=== PATIENT | female | born 1995 | race Caucasian/White ===

== ENCOUNTER 2022-03-30 07:40 | Emergency (ER) | payer OTHER, SELFPAY ==
[2022-03-30 07:46] VITALS: BP 134/83; PULSE 97; RESP 20; TEMP 36.2; O2SAT 99; BMI 24.8
[2022-03-30 08:57] LABS: Basophils Absolute Auto 0.03 K/uL (0.00-0.30); Basophils Percent Auto 0.4 % (0.0-3.0); Eosinophils Absolute Auto 0.09 K/uL (0.00-0.50); Eosinophils Percent Auto 1.1 % (0.0-7.0); Hematocrit 42.9 % (33.0-51.0); Hemoglobin* 14.5 gm/dL (12.0-16.0); Immature Granulocytes Abs Auto 0.01 K/uL (0.00-0.30); Lymphocytes Percent Auto 14.6 % (20-44); Mean Corpuscular HGB Conc 34 gm/dL (32-36); Mean Corpuscular Hemoglobin 29 pg (26-34); Mean Corpuscular Volume 86 fL (80-100); Neutrophils Percent Auto 79.8 % (42.0-72.0); Platelet Count* 268 K/uL (140-440); Red Blood Count 5.02 m/uL (4.00-5.20); White Blood Count* 8.34 K/uL (4.50-11.00)
[2022-03-30 09:04] LABS: Slide Review Reflex No
[2022-03-30 09:13] LABS: Chloride* 107 mmol/L (96-114); HCG Qualitative* Negative (Negative); Sodium* 137 mmol/L (135-149)
[2022-03-30 09:15] LABS: Creatinine* 0.6 mg/dL (0.5-1.5); Est. Creatinine Clearance* 115.47; Estimated Glomerular Filt Rate 125 ml/min
[2022-03-30 09:16] LABS: Blood Urea Nitrogen* 12 mg/dL (5-24); Calcium* 9.1 mg/dL (8.4-10.6); Carbon Dioxide* 17 mmol/L (20-32); Glucose* 78 mg/dL (60-115)
[2022-03-30 09:20] LABS: Acetaminophen* < 10.0 ug/mL (10.0-30.0); Ethanol* < 0.01 % (0.01-0.03); Salicylate* < 1.0 mg/dL (1.0-10)
--- NOTE | 2022-03-30 09:25 | ED_ITS ---
HPI - Anxiety General Date Seen: 03/30/22 Chief Complaint: Anxiety Stated Complaint: Unable eat or keep fluids down Time Seen by Provider: 03/30/22 07:51 Source: patient Mode of arrival: ambulatory Limitations: no limitations History of Present Illness HPI narrative: Patient is a very nice 26-year-old female who presents here with a feeling of her heart racing, tingling in her hands, and really inability to cope. This is been going on for the last few days possibly made worse yesterday when she found out she was . She is a . Have some problems with anxiety with her last is also. She saw her psychiatrist yesterday for the 1st time and was placed on Prozac of which she has not started taking yet. She denies any suicidal or homicidal ideation and admits that she does know if this is the right place for her. She did do counseling when she was younger, for anxiety, but has not done any recent. Denies use of alcohol, she did smoke marijuana a month ago, but does not use it on a regular basis. Denies taking any other medications, even [id number] medications. No history of previous psychiatric admissions, or suicidal attempts. 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 Reports that her significant other is very supportive Related Data Previous Rx's Medication Instructions Recorded hydroxyzine HCl 25 mg tablet 25 mg PO TID #15 tab 03/30/22 Allergies Allergy/AdvReac Type Severity Reaction Status Date / Time lorazepam [From Ativan] AdvReac Intermediate Verified 03/30/22 07:51 amoxicillin AdvReac Mild Verified 03/30/22 07:51 Review of Systems Status of ROS: Reports: 10 or more systems reviewed and unremarkable except as noted in History and below [facility] Medical History No significant past medical history Surgical History No significant past surgical history Social History Smoking Status: Former smoker How often do you have a drink containing alcohol: monthly or less AUDIT-C Alcohol total score: 1 Non-prescribed substance use: marijuana (any form) Exam Const: Vital Signs, click to edit/add: Vital Signs - 24 hr 03/30/22 07:46 Temperature 97.1 F L Pulse Rate [Pulse Oximeter] 97 Respiratory Rate 20 Blood Pressure [Ri ght Upper Arm] 134/83 Pulse Oximetry 99 Documenting provider has reviewed patient's vital signs: yes Common normals: no apparent distress, average body habitus, oriented x3, no limitations, healthy appearing, alert and well nourished General appearance: well kempt HENMT: Common normals: normocephalic, head/scalp atraumatic, hearing grossly normal bilaterally, external ears normal, EAC's normal, TM's normal bilaterally, external nose normal, nasal mucous membranes and turbinates normal, moist oral mucous membranes, oropharynx normal, dentition normal and gingiva normal Head and scalp: normocephalic and atraumatic Nose: external nose normal and nasal mucous membranes and turbinates normal External ear: external ears normal External auditory canal: EAC's normal Tympanic membrane: TM's normal bilaterally Eye: Common normals: PERRL, EOMs intact bilaterally, conjunctivae normal, no scleral icterus, no papilledema, normal visual kathleen by confrontation and fundi normal bilaterally Conjunctiva: conjunctiva(e) normal Pupil: PERRL Direct Ophthalmoscopy: no papilledema and fundi normal bilaterally Neck & C-Spine: Common normals: full ROM, no lymphadenopathy, supple, no meningeal signs, thyroid normal and no carotid bruits Thyroid: thyroid normal Lymph: Lymphatic: no lymphadenopathy noted Resp: Common normals: normal respiratory effort, no retractions, no use of accessory muscles, clear to auscultation bilaterally and percussion normal Auscultation: clear to auscultation bilaterally Percussion: percussion normal GI: Common normals: Normal to inspection, nondistended, normoactive bowel sounds present, soft to palpation, non-tender, no hepatosplenomegaly, no masses and no bruits Palpation: soft and no hepatosplenomegaly : Common normals: no CVA tenderness Bladder/kidney exam: no CVA tenderness Back & Pelvis: Common normals: no CVA tenderness, thoracic and lumbar spine normal to inspection, no thoracic nor lumbar tenderness, thoraco-lumbar ROM normal and straight leg raise negative bilaterally Extremity: Common normals: normal to inspection, full ROM, normal capillary refill, no joint enlargement, no clubbing, cyanosis or edema, no calf tenderness and no pedal edema Neuro: Common normals: oriented x3 Sensorium/orientation: alert Meningeal signs: no meningeal signs Psych: Common normals: mental status grossly normal, thought process normal, cooperative, affect normal, speech normal, activity/motor behavior normal, denies hallucinations, denies homicidal ideation and denies suicidal ideation Appearance: grossly normal and well kempt Attitude: engaged Activity/motor behavior: appropriate eye contact Speech: normal speech Mood and affect: anxious Thought process: normal thought process Thought content: normal thought content Attention/concentration: attention grossly intact Memory/cognition: memory grossly intact Insight: insight good Judgement: judgment good Skin: Common normals: no rashes or lesions noted General skin exam: no rashes or lesions noted Course Course Hospital Course: Patient was seen and assessed, Differential diagnosis includes but is not limited life-threatening diagnosis is of severe depression with suicidal plan, chemical intoxication with suicidal ideation and risk of self-harm, schizoaffective disorder with risk of self-harm, bipolar disorder with severe depressive phase and risk of self-harm, personality disorder with risk of self-harm, depression due to hyperthyroidism, metabolic derangement, or INTELLIGENT SYSTEMS ENGINEER abnormality Laboratory work was reassuring, her test was negative, there was evidence of marijuana on her urine drug screen but we already knew that. The remainder of her laboratory work was otherwise normal. I did have the mental health evaluation done, they also found her safe to go home, she agreed to sinus safety contract, we will set her up with psychologist, for counseling, she will return here if signs symptoms of worsening which we have gone over, I did give her a small supply of Atarax, (hydroxyzine) this will be used for her acute anxiety, we went over the signs and symptoms associated with use of this medication, and interactions. Vital Signs Vital signs: Initial Vital Signs Temperature 97.1 F L 03/30/22 07:46 Temperature Source Temporal Artery Scan 03/30/22 07:46 Pulse Rate 97 03/30/22 07:46 Respiratory Rate 20 03/30/22 07:46 Blood Pressure 134/83 03/30/22 07:46 Blood Pressure Mean 100 03/30/22 07:46 Blood Pressure Position Supine 03/30/22 07:46 Pulse Oximetry 99 03/30/22 07:46 Oxygen Delivery Method 03/30/22 07:46 Vital Signs Temperature 97.1 F L 03/30/22 07:46 Pulse Rate 97 03/30/22 07:46 Respiratory Rate 20 03/30/22 07:46 Blood Pressure 134/83 03/30/22 07:46 Pulse Oximetry 99 03/30/22 07:46 Temperature 97.1 F L 03/30/22 07:46 Pulse Rate 97 03/30/22 07:46 Respiratory Rate 20 03/30/22 07:46 Blood Pressure 134/83 03/30/22 07:46 Pulse Oximetry 99 03/30/22 07:46 MDM - Anxiety MDM Narrative Medical decision making narrative: Patient is seen and assessed her vital signs are normal. She is alert and oriented. I discussed with her getting an evaluation, I believe this is more likely anxiety, likely worsened by her finding out she is . She does have a baseline issue with this. Differential diagnosis of the patient's acute psychosis is mental illness in the form of schizophrenia, bipolar disorder, metabolic derangement such as hyper/hypoglycemia or hypo/hyper natremia, INTELLIGENT SYSTEMS ENGINEER disorder such as infection, drug use either listed her prescription, dementia, thyrotoxicosis, hepatic failure as well as other etiologies. Several items in the differential diagnosis have the potential to be life-threatening such as liver failure, hypo and hypernatremia. We will go ahead and get some labs along with a mental health evaluation. Differential Diagnosis Differential diagnosis: Likely hyperventilation, panic disorder and acute anxiety Medical Records Attestation: I reviewed the patient's medical records. Lab Data Attestation: I reviewed the patient's lab results. Labs: Lab Results 03/30/22 03/30/22 03/30/22 Range/Units 08:48 08:48 08:48 WBC 8.34 (4.50-11.00) K/uL RBC 5.02 (4.00-5.20) m/uL Hgb 14.5 (12.0-16.0) gm/dL Hct 42.9 (33.0-51.0) % MCV 86 (80-100) fL MCH 29 (26-34) pg MCHC 34 (32-36) gm/dL RDW Coeff of Christian 12.0 (11.5-15.5) % Plt Count 268 (140-440) K/uL Neut % (Auto) 79.8 H (42.0-72.0) % Lymph % (Auto) 14.6 L (20-44) % [place] % (Auto) 4.0 (0.0-11.0) % Eos % (Auto) 1.1 (0.0-7.0) % Baso % (Auto) 0.4 (0.0-3.0) % Neut # (Auto) 6.70 (1.7-7.0) K/uL Lymph # (Auto) 1.20 (0.90-2.90) K/uL [place] # (Auto) 0.30 (0.00-0.90) K/UL Eos # (Auto) 0.09 (0.00-0.50) K/uL Baso # (Auto) 0.03 (0.00-0.30) K/uL Abs Immat Gran (auto) 0.01 (0.00-0.30) K/uL Sodium 137 (135-149) mmol/L Potassium 4.0 (3.6-5.1) mmol/L Chloride 107 (96-114) mmol/L Carbon Dioxide 17 L (20-32) mmol/L BUN 12 (5-24) mg/dL Creatinine 0.6 (0.5-1.5) mg/dL Estimated Creat Clear 115.47 Estimated GFR 125 ml/min Glucose 78 (60-115) mg/dL Calcium 9.1 (8.4-10.6) mg/dL HCG, Qual Negative (Negative) Salicylates < 1.0 L (1.0-10) mg/dL Urine Opiates Screen (Negative) Ur Oxycodone Screen (Negative) Urine Methadone Screen (Negative) Ur Propoxyphene Screen (Negative) Acetaminophen < 10.0 L (10.0-30.0) ug/mL Ur Barbiturates Screen (Negative) U Tricyclic Antidepress (Negative) Ur Phencyclidine Scrn (Negative) Ur Amphetamines Screen (Negative) U Methamphetamines Scrn (Negative) U Benzodiazepines Scrn (Negative) Urine Cocaine Screen (Negative) U Marijuana (THC) Screen (Negative) Ur Drug Screen Comment Ethyl Alcohol < 0.01 L (0.01-0.03) % 07/29/22 Range/Units 09:10 WBC (4.50-11.00) K/uL RBC (4.00-5.20) m/uL Hgb (12.0-16.0) gm/dL Hct (33.0-51.0) % MCV (80-100) fL MCH (26-34) pg MCHC (32-36) gm/dL RDW Coeff of Christian (11.5-15.5) % Plt Count (140-440) K/uL Neut % (Auto) (42.0-72.0) % Lymph % (Auto) (20-44) % [place] % (Auto) (0.0-11.0) % Eos % (Auto) (0.0-7.0) % Baso % (Auto) (0.0-3.0) % Neut # (Auto) (1.7-7.0) K/uL Lymph # (Auto) (0.90-2.90) K/uL [place] # (Auto) (0.00-0.90) K/UL Eos # (Auto) (0.00-0.50) K/uL Baso # (Auto) (0.00-0.30) K/uL Abs Immat Gran (auto) (0.00-0.30) K/uL Sodium (135-149) mmol/L Potassium (3.6-5.1) mmol/L Chloride (96-114) mmol/L Carbon Dioxide (20-32) mmol/L BUN (5-24) mg/dL Creatinine (0.5-1.5) mg/dL Estimated Creat Clear Estimated GFR ml/min Glucose (60-115) mg/dL Calcium (8.4-10.6) mg/dL HCG, Qual (Negative) Salicylates (1.0-10) mg/dL Urine Opiates Screen Negative (Negative) Ur Oxycodone Screen Negative (Negative) Urine Methadone Screen Negative (Negative) Ur Propoxyphene Screen Negative (Negative) Acetaminophen (10.0-30.0) ug/mL Ur Barbiturates Screen Negative (Negative) U Tricyclic Antidepress Negative (Negative) Ur Phencyclidine Scrn Negative (Negative) Ur Amphetamines Screen Negative (Negative) U Methamphetamines Scrn Negative (Negative) U Benzodiazepines Scrn Negative (Negative) Urine Cocaine Screen Negative (Negative) U Marijuana (THC) Screen POSITIVE A* (Negative) Ur Drug Screen Comment See Note Ethyl Alcohol (0.01-0.03) % Discharge Plan Discharge Clinical Impression: Acute anxiety Patient Disposition: Home, Self-Care Condition: Improved Instructions: Anxiety (ED) Additional Instructions: Home, rest, follow-up with psychologist as directed, please signed a safety plan, return if worsening signs and symptoms, the medication I prescribed for you is for the anxiety, but can make you tired. Do not combine with alcohol, note for work given today. Please recheck her test in 1 week if you do not get her period. Prescriptions: New hydroxyzine HCl 25 mg tablet 25 mg PO TID Qty: 15 0RF Follow Up/Referrals: Provider,Not a Local [Primary Care Provider] - Stand Alone Forms: [employer] Info Instructions
[2022-03-30 09:26] LABS: Amphetamine Screen Urine Negative (Negative); Barbiturate Screen Urine Negative (Negative); Benzodiazepines Screen Urine Negative (Negative); Cocaine Screen Urine Negative (Negative); Methadone Screen Urine Negative (Negative); Methamphetamines Screen Urine Negative (Negative); Opiate Screen Urine Negative (Negative); Oxycodone Screen Urine Negative (Negative); Phencyclidine Screen Urine Negative (Negative); Tricyclic Antidepressant Urine Negative (Negative)
--- NOTE | 2022-03-30 09:26 | ED.NURSE ---
dec assessment initiated. pt looking at breakfast menu
[2022-03-30 09:31] LABS: Cannabinoid Screen Urine POSITIVE (Negative)
--- NOTE | 2022-03-30 09:39 | ED.NURSE ---
pt having DEC assessment
== END 2022-03-30 11:10 | disposition home or self-care (01) ==
PROVIDERS: Emergency Provider Family Medicine
DX: F41.9 Anxiety disorder, unspecified (principal)
CPT/HCPCS: 36415; 80048; 80143; 80179; 80306; 82077; 84703; 85025; 99283; 99284

== ENCOUNTER 2022-04-03 17:23 | Emergency (ER) | payer OTHER, SELFPAY ==
[2022-04-03] VITALS (8 sets, daily range): BP systolic 116–135; BP diastolic 75–103; PULSE 94–119; RESP 24; O2SAT 97–99; BMI 24.8
[2022-04-03 19:42] LABS: Chloride* 109 mmol/L (96-114); Potassium* 3.2 mmol/L (3.6-5.1); Sodium* 138 mmol/L (135-149)
[2022-04-03 19:45] LABS: Blood Urea Nitrogen* 10 mg/dL (5-24); Carbon Dioxide* 17 mmol/L (20-32); Creatinine* 0.6 mg/dL (0.5-1.5); Est. Creatinine Clearance* 115.47; Estimated Glomerular Filt Rate 125 ml/min
[2022-04-03 19:46] LABS: Calcium* 9.3 mg/dL (8.4-10.6); Glucose* 85 mg/dL (60-115)
[2022-04-03 19:59] LABS: Troponin I* < 0.01 ng/mL (0.01-0.04)
[2022-04-03 20:02] LABS: Basophils Absolute Auto 0.03 K/uL (0.00-0.30); Basophils Percent Auto 0.3 % (0.0-3.0); Eosinophils Absolute Auto 0.09 K/uL (0.00-0.50); Hematocrit 40.7 % (33.0-51.0); Hemoglobin* 14.1 gm/dL (12.0-16.0); Immature Granulocytes Abs Auto 0.01 K/uL (0.00-0.30); Lymphocytes Absolute Auto 2.21 K/uL (0.90-2.90); Lymphocytes Percent Auto 24.2 % (20-44); Mean Corpuscular HGB Conc 35 gm/dL (32-36); Mean Corpuscular Hemoglobin 29 pg (26-34); Mean Corpuscular Volume 82 fL (80-100); Monocytes Percent Auto 6.5 % (0.0-11.0); Neutrophils Absolute Auto 6.21 K/uL (1.7-7.0); Neutrophils Percent Auto 67.9 % (42.0-72.0); Platelet Count* 330 K/uL (140-440); RDW Coefficient of Variation % 11.8 % (11.5-15.5); Red Blood Count 4.95 m/uL (4.00-5.20); Slide Review Reflex No; White Blood Count* 9.14 K/uL (4.50-11.00)
[2022-04-03 20:04] LABS: D Dimer Quantitative* < 0.27 ug/ml (0.00-0.50)
[2022-04-03 20:17] LABS: PCR FLU A Negative PCR FLU A (Negative); PCR FLU B Negative PCR FLU B (Negative)
--- NOTE | 2022-04-03 20:42 | ED.GENADULT ---
HPI - General Adult General Chief complaint: Neuro Symptoms/Altered Deficit Stated complaint: joints locking up, facial numbness Time Seen by Provider: 04/03/22 18:51 History of Present Illness HPI narrative: Leidy is a 26yo female patient at approximately 5-6wks EGA based on LMP with complaints of anxiety, shortness of breath, and chest discomfort. She reports her symptoms have been worsening over the past 2 days. She called her psychiatrist she has recently started a new medication, Prozac, and was advised to stop the medication and follow-up with the psychiatrist later in the week. The patient states that she has had some nausea without vomiting. She denies URI symptoms. She denies cough. 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 She is tested twice weekly. She has no significant past medical history besides anxiety and depression. See nursing notes for additional details. Related Data Previous Rx's Medication Instructions Recorded hydroxyzine HCl 25 mg tablet 25 mg PO TID Anxiety #15 tabs 03/30/22 Allergies Allergy/AdvReac Type Severity Reaction Status Date / Time lorazepam [From Ativan] AdvReac Intermediate Verified 03/30/22 07:51 amoxicillin AdvReac Mild Verified 03/30/22 07:51 Review of Systems Const: Reports: fatigue and malaise; Denies: fever or chills ENMT: Denies: throat pain, throat swelling, difficulty swallowing, nasal discharge or nasal congestion Cardio: Reports: lightheadedness and shortness of breath with exertion; Denies: chest pain (reports chest 'tightness'), palpitations, swelling of feet/ankles or shortness of breath when lying down Resp: Reports: shortness of breath; Denies: cough or wheezing GI: Denies: abdominal pain, nausea, vomiting, diarrhea, constipation or difficulty swallowing Integ/Breast: Denies: rash Neuro: Denies: headache Endo: Reports: fatigue Allergy/Immuno: Denies: throat swelling or wheezing PFSH PFS Medical History No significant past medical history Surgical History No significant past surgical history Social History (Reviewed 04/03/22 @ 20:55 by KARAN Vargas Smoking Status: Former smoker Do you use any of these nicotine containing products: None How often do you have a drink containing alcohol: monthly or less AUDIT-C Alcohol total score: 1 Non-prescribed substance use: marijuana (any form) Exam Const: Vital Signs, click to edit/add: Vital Signs - 24 hr 04/03/22 17:38 Pulse Rate [Pulse Oximeter] 115 H Respiratory Rate 24 Blood Pressure [Ri ght Upper Arm] 129/77 Pulse Oximetry 98 Oxygen Delivery Me thod Room Air Documenting provider has reviewed patient's vital signs: yes Common normals: no apparent distress and alert General appearance: cooperative, comfortable and well developed Orientation/consciousness: Yes awake, Yes oriented to person, Yes oriented to place and Yes oriented to time Resp: Common normals: normal respiratory effort, no use of accessory muscles and clear to auscultation bilaterally Effort & inspection: able to speak in complete sentences Auscultation: clear to auscultation bilaterally Cardio: Common normals: regular rate, regular rhythm, S1 normal heart sound and S2 normal heart sound Rate: regular rate Rhythm: regular rhythm Heart sounds: S1 normal and S2 normal GI: Common normals: soft to palpation Palpation: soft Extremity: Common normals: normal to inspection and full ROM Neuro: Sensorium/orientation: awake, alert, oriented to person, oriented to place and oriented to time Motor exam: strength 5/5 throughout and no pronator drift Psych: Common normals: mental status grossly normal, thought process normal, cooperative and affect normal Thought process: normal thought process Skin: Common normals: no rashes or lesions noted General skin exam: no rashes or lesions noted Course Course Hospital Course: Andria presented to the emergency department with complaints of anxiety, shortness of breath, and chest pressure. Laboratory studies and EKG were performed with findings as noted. Ivory previously discussed the adverse effects of medication she had recently started with her psychiatrist. Her psychiatrist encourage her to stop the medication follow-up later in the week. We discussed the risks and benefits of medication use, especially during early . Patient's results were discussed with her and her significant other, her questions were answered, and she verbalized understanding. She is reassured time of discharge. She is encouraged to follow-up if she has any acute concerns or complaints. Vital Signs Vital signs: Initial Vital Signs Temperature Source Temporal Artery Scan 04/03/22 17:38 Pulse Rate 115 H 04/03/22 17:38 Pulse Rhythm 04/03/22 17:38 Respiratory Rate 24 04/03/22 17:38 Blood Pressure 129/77 04/03/22 17:38 Blood Pressure Mean 94 04/03/22 17:38 Pulse Oximetry 98 04/03/22 17:38 Oxygen Delivery Method 04/03/22 17:38 Vital Signs Pulse Rate 115 H 04/03/22 17:38 Respiratory Rate 24 04/03/22 17:38 Blood Pressure 129/77 04/03/22 17:38 Pulse Oximetry 98 04/03/22 17:38 Oxygen Delivery Method 04/03/22 17:38 Pulse Rate 115 H 04/03/22 17:38 Respiratory Rate 24 04/03/22 17:38 Blood Pressure 129/77 04/03/22 17:38 Pulse Oximetry 98 04/03/22 17:38 Oxygen Delivery Method 04/03/22 17:38 Medical Decision Making Lab Data Labs: Lab Results 04/03/22 04/03/22 04/03/22 Range/Units 19:15 19:15 19:15 WBC 9.14 (4.50-11.00) K/uL RBC 4.95 (4.00-5.20) m/uL Hgb 14.1 (12.0-16.0) gm/dL Hct 40.7 (33.0-51.0) % MCV 82 (80-100) fL MCH 29 (26-34) pg MCHC 35 (32-36) gm/dL RDW Coeff of Christian 11.8 (11.5-15.5) % Plt Count 330 (140-440) K/uL Neut % (Auto) 67.9 (42.0-72.0) % Lymph % (Auto) 24.2 (20-44) % [place] % (Auto) 6.5 (0.0-11.0) % Eos % (Auto) 1.0 (0.0-7.0) % Baso % (Auto) 0.3 (0.0-3.0) % Neut # (Auto) 6.21 (1.7-7.0) K/uL Lymph # (Auto) 2.21 (0.90-2.90) K/uL [place] # (Auto) 0.60 (0.00-0.90) K/UL Eos # (Auto) 0.09 (0.00-0.50) K/uL Baso # (Auto) 0.03 (0.00-0.30) K/uL Abs Immat Gran (auto) 0.01 (0.00-0.30) K/uL D-Dimer Quant (PE/DVT) < 0.27 (0.00-0.50) ug/ml Sodium 138 (135-149) mmol/L Potassium 3.2 L (3.6-5.1) mmol/L Chloride 109 (96-114) mmol/L Carbon Dioxide 17 L (20-32) mmol/L BUN 10 (5-24) mg/dL Creatinine 0.6 (0.5-1.5) mg/dL Estimated Creat Clear 115.47 Estimated GFR 125 ml/min Glucose 85 (60-115) mg/dL Calcium 9.3 (8.4-10.6) mg/dL Troponin I < 0.01 L (0.01-0.04) ng/mL SARS-CoV-2 (PCR) (Negative) Influenza Type A (PCR) (Negative) Influenza Type B (PCR) (Negative) 04/03/22 Range/Units 19:34 WBC (4.50-11.00) K/uL RBC (4.00-5.20) m/uL Hgb (12.0-16.0) gm/dL Hct (33.0-51.0) % MCV (80-100) fL MCH (26-34) pg MCHC (32-36) gm/dL RDW Coeff of Christian (11.5-15.5) % Plt Count (140-440) K/uL Neut % (Auto) (42.0-72.0) % Lymph % (Auto) (20-44) % [place] % (Auto) (0.0-11.0) % Eos % (Auto) (0.0-7.0) % Baso % (Auto) (0.0-3.0) % Neut # (Auto) (1.7-7.0) K/uL Lymph # (Auto) (0.90-2.90) K/uL [place] # (Auto) (0.00-0.90) K/UL Eos # (Auto) (0.00-0.50) K/uL Baso # (Auto) (0.00-0.30) K/uL Abs Immat Gran (auto) (0.00-0.30) K/uL D-Dimer Quant (PE/DVT) (0.00-0.50) ug/ml Sodium (135-149) mmol/L Potassium (3.6-5.1) mmol/L Chloride (96-114) mmol/L Carbon Dioxide (20-32) mmol/L BUN (5-24) mg/dL Creatinine (0.5-1.5) mg/dL Estimated Creat Clear Estimated GFR ml/min Glucose (60-115) mg/dL Calcium (8.4-10.6) mg/dL Troponin I (0.01-0.04) ng/mL SARS-CoV-2 (PCR) Negative SARS-CoV-2 (Negative) Influenza Type A (PCR) Negative PCR FLU A (Negative) Influenza Type B (PCR) Negative PCR FLU B (Negative) Discharge Plan Discharge Clinical Impression: Encounter for incidental , Acute anxiety, Adverse effect of antidepressant drug Patient Disposition: Home, Self-Care Condition: Stable Instructions: Cognitive Behavioral Therapy (ED) Additional Instructions: Thank you for choosing [facility] for your care today. Consider counseling for definitive therapy and coping mechanisms to add to the emotional toolbox to assist with control of symptoms of anxiety and depression. I recommend calling primary care for follow-up in the next 3-5 days. If new or worsening symptoms develop, if you develop suicidal thoughts, or you have any concerns in the meantime, please call your primary care clinic or return to the ER for re-evaluation. Activity Level: No Restrictions and Activity as Tolerated Discharge Diet: Regular Prescriptions: No Action hydroxyzine HCl 25 mg tablet 25 mg PO TID Qty: 15 0RF Follow Up/Referrals: Provider,Not a Local [Primary Care Provider] - Stand Alone Forms: [employer] Info Instructions
[2022-04-03 21:06] LABS: SARS PCR* Negative SARS-CoV-2 (Negative)
== END 2022-04-03 22:03 | disposition home or self-care (01) ==
PROVIDERS: Emergency Provider Family Medicine
DX: F41.9 Anxiety disorder, unspecified (principal); Z33.1 Pregnant state, incidental; T43.205A Adverse effect of unspecified antidepressants, initial encounter
CPT/HCPCS: 36415; 80048; 84484; 85025; 85379; 87502; 87635; 93005; 99283; 99284

== ENCOUNTER 2022-08-01 17:45 | Emergency (ER) | payer OTHER, SELFPAY ==
[2022-08-01 18:05] VITALS: BP 113/68; PULSE 115; RESP 16; TEMP 36.9; O2SAT 97; BMI 24.8
--- NOTE | 2022-08-01 18:24 | CRLHL7_ITS ---
For Patients: As a result of the Century Cures Act, medical imaging exams and procedure reports are released immediately into your electronic medical record. You may view this report before your referring provider. If you have questions, please contact your health care provider. INDICATION: Post miscarriage. TECHNIQUE: Ultrasound pelvis transvaginal for better assessment or to better visualize the endometrium. Real-time sonographic images with spectral and color Doppler imaging of the ovaries were obtained. COMPARISON: None. FINDINGS: Uterus: 8.2 x 4 x 5 cm. Normal echotexture of the myometrium. No masses. Endometrium: Transvaginal imaging was performed to better evaluate the endometrium. Endometrial thickness measures 13 mm. Thickened heterogeneous endometrial stripe with internal echogenic material and hypervascularity. Ovaries: The right ovary measures 3.7 x 2.3 x 2.3 cm and left ovary measures 3.3 x 1.3 x 1.6 cm. No ovarian or adnexal masses. Normal arterial and venous blood flow in both ovaries. Cul-de-sac: No significant free fluid. IMPRESSION: Heterogeneous hypervascular material in the endometrial canal is concerning for retained products of conception. Dictated by Endy Ghosh MD @ 08/01/2022 7:15:17 PM (Electronically Signed)
--- NOTE | 2022-08-01 18:25 | ED.GENADULT ---
HPI - General Adult General Time Seen by Provider: 18:25 Date Seen: 08/01/22 Chief complaint: Abdominal Pain Stated complaint: Bleeding Ovarian Cyst Time Seen by Provider: 08/01/22 18:16 Source: patient Mode of arrival: ambulatory Limitations: no limitations History of Present Illness HPI narrative: Patient is a very pleasant 18-year-old female who has had 2 children, 3 miscarriages, and who presents about 1 month after having a miscarriage, with persistent bleeding on and off over the month she had an episode of miscarriage, the did not require intervention she had only lied about 4 days, subsequently as she was followed by bleeding mid month of this month for about a week, and then recently was rolling over in bed to Dr. Elise and had a gush of blood and some bleeding again today. She has had some lower abdominal cramping on the left she has had an ruptured ovarian cyst in the past and feels this is similar. She is not on any control. She follows with [facility]. No other specific concerns, no fevers, no chills. On presentation her pulse is slightly elevated 115. She is generally healthy. Related Data Previous Rx's Medication Instructions Recorded hydroxyzine HCl 25 mg tablet 25 mg PO TID Anxiety #15 tabs 03/30/22 desogestrel-e.estradiol 0.15 1 tab PO QDAY #84 tabs 08/02/22 mg-0.02 mg(21)/e.estrad 0.01 mg(5) tablet Allergies Allergy/AdvReac Type Severity Reaction Status Date / Time fluoxetine Allergy Intermediate heart rate Verified 08/02/22 14:24 elevated lorazepam [From Ativan] AdvReac Intermediate Verified 08/02/22 14:24 amoxicillin AdvReac Mild Verified 08/02/22 14:24 Review of Systems Status of ROS: Reports: 6 or more systems reviewed and unremarkable except as noted in History and below [facility] Medical History (Updated 08/02/22 @ 14:27 by Luz Haywood MD) Miscarriage No significant past medical history Retained products of conception Surgical History No significant past surgical history Social History Smoking Status: Former smoker Do you use any of these nicotine containing products: None How often do you have a drink containing alcohol: monthly or less Alcohol type: other Alcohol type details: WHITE CLAWS How many standard drinks containing alcohol do you have on a typical day: 1 or 2 How often do you have six or more drinks on one occasion: Never AUDIT-C Alcohol total score: 1 Non-prescribed substance use: marijuana (any form) Non-prescribed substance use details: DAILY Caffeine: Yes Are you using contraception or practicing any form of control: No Exam Narrative: Exam Narrative: Objective: In general patient is no apparent distress her vital signs show an elevated pulse of 115 otherwise unremarkable, afebrile HEENT unremarkable does not appear pale Abdomen benign soft There is mild tenderness in the left lower pelvic area. Negative extremities no edema, good peripheral perfusion Const: Vital Signs, click to edit/add: Vital Signs - 24 hr 08/01/22 18:05 Temperature 98.5 F Pulse Rate [Right Pulse Oximeter] 115 H Respiratory Rate 16 Blood Pressure [Ri ght Upper Arm] 113/68 Pulse Oximetry 97 Oxygen Delivery Me thod Room Air Course Vital Signs Vital signs: Initial Vital Signs Temperature 98.5 F 08/01/22 18:05 Temperature Source Temporal Artery Scan 08/01/22 18:05 Pulse Rate 115 H 08/01/22 18:05 Respiratory Rate 16 08/01/22 18:05 Blood Pressure 113/68 08/01/22 18:05 Blood Pressure Mean 83 08/01/22 18:05 Blood Pressure Position Sitting 08/01/22 18:05 Pulse Oximetry 97 08/01/22 18:05 Oxygen Delivery Method 08/01/22 18:05 Vital Signs Temperature 98.5 F 08/01/22 18:05 Pulse Rate 115 H 08/01/22 18:05 Respiratory Rate 16 08/01/22 18:05 Blood Pressure 113/68 08/01/22 18:05 Pulse Oximetry 97 08/01/22 18:05 Oxygen Delivery Method 08/01/22 18:05 Temperature 98.5 F 08/01/22 18:05 Pulse Rate 115 H 08/01/22 18:05 Respiratory Rate 16 08/01/22 18:05 Blood Pressure 113/68 08/01/22 18:05 Pulse Oximetry 97 08/01/22 18:05 Oxygen Delivery Method 08/01/22 18:05 Medical Decision Making MDM Narrative Medical decision making narrative: At this point I think be reasonable to get a pelvic ultrasound, to determine there is any intrauterine contents. Will get a quantitative HCG. Blood type. Give IV fluids for her mild tachycardia. Disposition pending findings above. Addendum: The patient appears on ultrasound to have retained products of conception in the endometrial canal. She has passed a couple of large clots, but now seems to have slowed the bleeding. She appears hemodynamically stable and pulses improved. I think we can allow her to go home. I consulted with Dr. Martinez who kindly will see the patient in follow-up and discuss further care such as Cytotec verses endometrial curettage. Patient was agree in agreement with this. And will follow up as such. The patient's blood type is B-positive Lab Data Labs: Lab Results 08/01/22 08/01/22 08/01/22 Range/Units 18:35 18:35 18:35 WBC 7.40 (4.50-11.00) K/uL RBC 4.45 (4.00-5.20) m/uL Hgb 13.0 (12.0-16.0) gm/dL Hct 38.1 (33.0-51.0) % MCV 86 (80-100) fL MCH 29 (26-34) pg MCHC 34 (32-36) gm/dL RDW Coeff of Christian 11.7 (11.5-15.5) % Plt Count 291 (140-440) K/uL Neut % (Auto) 60.5 (42.0-72.0) % Lymph % (Auto) 30.7 (20-44) % [place] % (Auto) 6.5 (0.0-11.0) % Eos % (Auto) 1.8 (0.0-7.0) % Baso % (Auto) 0.5 (0.0-3.0) % Neut # (Auto) 4.48 (1.7-7.0) K/uL Lymph # (Auto) 2.27 (0.90-2.90) K/uL [place] # (Auto) 0.50 (0.00-0.90) K/UL Eos # (Auto) 0.13 (0.00-0.50) K/uL Baso # (Auto) 0.04 (0.00-0.30) K/uL Abs Immat Gran (auto) 0.00 (0.00-0.30) K/uL Imm/Tot Granulo (auto) 0.0 % Sodium 139 (135-149) mmol/L Potassium 3.6 (3.6-5.1) mmol/L Chloride 108 (96-114) mmol/L Carbon Dioxide 21 (20-32) mmol/L BUN 11 (5-24) mg/dL Creatinine 0.5 (0.5-1.5) mg/dL Estimated Creat Clear 138.57 Estimated GFR 131 ml/min Glucose 76 (60-115) mg/dL Calcium 9.3 (8.4-10.6) mg/dL HCG, Quant mIU/mL Blood Type B Positive 08/01/22 Range/Units 18:35 WBC (4.50-11.00) K/uL RBC (4.00-5.20) m/uL Hgb (12.0-16.0) gm/dL Hct (33.0-51.0) % MCV (80-100) fL MCH (26-34) pg MCHC (32-36) gm/dL RDW Coeff of Christian (11.5-15.5) % Plt Count (140-440) K/uL Neut % (Auto) (42.0-72.0) % Lymph % (Auto) (20-44) % [place] % (Auto) (0.0-11.0) % Eos % (Auto) (0.0-7.0) % Baso % (Auto) (0.0-3.0) % Neut # (Auto) (1.7-7.0) K/uL Lymph # (Auto) (0.90-2.90) K/uL [place] # (Auto) (0.00-0.90) K/UL Eos # (Auto) (0.00-0.50) K/uL Baso # (Auto) (0.00-0.30) K/uL Abs Immat Gran (auto) (0.00-0.30) K/uL Imm/Tot Granulo (auto) % Sodium (135-149) mmol/L Potassium (3.6-5.1) mmol/L Chloride (96-114) mmol/L Carbon Dioxide (20-32) mmol/L BUN (5-24) mg/dL Creatinine (0.5-1.5) mg/dL Estimated Creat Clear Estimated GFR ml/min Glucose (60-115) mg/dL Calcium (8.4-10.6) mg/dL HCG, Quant < 2.39 mIU/mL Blood Type Discharge Plan Discharge Clinical Impression: DUB (dysfunctional uterine bleeding) Patient Disposition: Home, Self-Care Condition: Stable Additional Instructions: Light activity, [facility] in the next day or 2. Dr. Damon was consulted and would be happy to see the patient in follow-up. I will have ER staff contact the clinic in the morning and see if we can get the patient an appointment. If she has increased bleeding, dizziness, increased pain that is she is uncomfortable with an can not tolerate, she should return back to the ER. Activity Level: Light activity Discharge Diet: Regular Prescriptions: No Action desog-e.estradiol/e.estradiol 0.15-0.02 mgx21 /0.01 mg x 5 tablet 1 tab PO QDAY Qty: 84 3RF hydroxyzine HCl 25 mg tablet 25 mg PO TID Qty: 15 0RF Follow Up/Referrals: Provider,Not a Local [Primary Care Provider] - Stand Alone Forms: [employer] Info Instructions
[2022-08-01 18:46] LABS: Basophils Absolute Auto 0.04 K/uL (0.00-0.30); Basophils Percent Auto 0.5 % (0.0-3.0); Eosinophils Absolute Auto 0.13 K/uL (0.00-0.50); Eosinophils Percent Auto 1.8 % (0.0-7.0); Hematocrit 38.1 % (33.0-51.0); Lymphocytes Absolute Auto 2.27 K/uL (0.90-2.90); Lymphocytes Percent Auto 30.7 % (20-44); Mean Corpuscular HGB Conc 34 gm/dL (32-36); Mean Corpuscular Hemoglobin 29 pg (26-34); Mean Corpuscular Volume 86 fL (80-100); Monocytes Percent Auto 6.5 % (0.0-11.0); Neutrophils Absolute Auto 4.48 K/uL (1.7-7.0); Neutrophils Percent Auto 60.5 % (42.0-72.0); Platelet Count* 291 K/uL (140-440); RDW Coefficient of Variation % 11.7 % (11.5-15.5); Red Blood Count 4.45 m/uL (4.00-5.20)
[2022-08-01 19:00] LABS: Chloride* 108 mmol/L (96-114); Potassium* 3.6 mmol/L (3.6-5.1); Sodium* 139 mmol/L (135-149)
[2022-08-01 19:03] LABS: Carbon Dioxide* 21 mmol/L (20-32); Creatinine* 0.5 mg/dL (0.5-1.5); Est. Creatinine Clearance* 138.57; Estimated Glomerular Filt Rate 131 ml/min
[2022-08-01 19:04] LABS: Blood Urea Nitrogen* 11 mg/dL (5-24); Calcium* 9.3 mg/dL (8.4-10.6); Glucose* 76 mg/dL (60-115)
[2022-08-01 19:06] LABS: Slide Review Reflex No
[2022-08-01 19:36] LABS: HCG Quantitative* < 2.39 mIU/mL
--- NOTE | 2022-08-01 19:55 | ED.NURSE ---
Patient reports she will make appointment on her own so that she is batter able to choice day and time.
--- NOTE | 2022-08-02 08:30 | ED.NURSE ---
Received note from Dr. Lozada/manufacturing supervisor 2nd shift nurses that patient needs follow up today with [facility]. Consulted with Dr. Damon at last night's ED visit. Patient scheduled with Dr. Haywood today (08/02/22) at 12:45. Patient informed and agreeable. No further questions/concerns.
== END 2022-08-01 19:58 | disposition home or self-care (01) ==
PROVIDERS: Emergency Provider Family Medicine
DX: N93.8 Other specified abnormal uterine and vaginal bleeding (principal)
CPT/HCPCS: 36415; 76830; 80048; 84702; 85025; 86900; 86901; 99284

== ENCOUNTER 2022-08-02 14:07 | Day surgery (SDC) | payer OTHER, SELFPAY ==
[2022-08-02] MEDS: SODIUM CHLORIDE 0.9 % (FLUSH) 10 ML SYRINGE IVF (14:30)
[2022-08-02] MEDS: LACTATED RINGERS 1000 ML 1,000 ML 100 ML IV (14:30)
[2022-08-02 14:35] VITALS: BP 110/69; PULSE 103; RESP 16; TEMP 37.3; O2SAT 97
[2022-08-02 14:37] VITALS: BMI 25.0
[2022-08-02] MEDS: BUPIVACAINE 0.5% 30 ML INJECTION (15:16)
--- NOTE | 2022-08-02 15:27 | W.ANESCHARGE ---
Anesthesia Charges Start Date/Time Anesthesia Start Date: 08/02/22 Anesthesia Start Time: 15:00 Stop Date/Time Anesthesia Stop Date: 08/02/22 Anesthesia Stop Time: 15:34 Summary Emergency: Yes
[2022-08-02 15:34] VITALS: BP 89/64; PULSE 98; RESP 16; TEMP 36.2; O2SAT 100
[2022-08-02 15:45] VITALS: BP 100/63; PULSE 85; RESP 16; O2SAT 100
[2022-08-02 16:00] VITALS: BP 107/67; PULSE 98; RESP 16; O2SAT 100
--- NOTE | 2022-08-02 16:07 | W.ANESCHARGE ---
Anesthesia Charges Start Date/Time Anesthesia Start Date: 08/02/22 Anesthesia Start Time: 15:00 Stop Date/Time Anesthesia Stop Date: 08/02/22 Anesthesia Stop Time: 15:34 Summary Emergency: Yes
[2022-08-02 16:09] LABS: SARS Antigen* Negative (Negative)
--- NOTE | 2022-08-02 16:12 | PM.PROC ---
Procedure Note Time Seen by Provider: 16:12 Date Seen: 08/02/22 Date of procedure: 08/02/22 Will [facility] bill your pro fee for this procedure?: Yes Procedure: Preoperative diagnosis: Leidy is a 26-year-old 7 para 2031 with suspected retained products of conception. Postoperative diagnosis: Same Procedure: Ultrasound-guided Suction curettage Anesthesia: Conscious sedation, paracervical block Surgeon: Luz Haywood MD Licensed Mental Health Professional: Not applicable IV fluid: 600 mL Estimated blood loss: 5 mL Specimen: Uterine contents to pathology Findings: On exam under anesthesia: the uterus was approximately 8 weeks size, mid position. Cervical os was slightly dilated, approximately 0.5 cm, without active bleeding. Adnexa were without mass or fullness palpable. The uterus sounded to 10 cm. On suction curettage there was a moderate amount of products of conception. Procedure: Leidy was taken to the operating room where conscious sedation was found to be adequate. She was placed in the dorsal lithotomy position and an exam under anesthesia was performed with with findings stated above. She was then prepped and draped in normal sterile manner. The bladder was backfilled with 300 mL of saline via a Levi catheter. The catheter was clamped with a small Alisha clamp to prevent drainage of the saline. The radiological technician provided ultrasound guidance for the entire procedure. The fundal area of the endometrium was heterogenous and measured 1.3 cm. A bivalve speculum was placed in the vagina to visualize the cervix. A paracervical block was placed using 0.5% Marcaine: 5 mL injected at the 4 and 8 o'clock positions on the cervix. The anterior lip of the cervix was grasped with a long Allis clamp. The cervix was dilated to Hegar # 8. A # 8 curved curette was then advanced into the uterus without difficulty. A suction curettage was then performed using 40-50 mmHg pressure. Three passes with the curette were performed to remove all visualized tissue. The curette was removed and mild, sharp curettage was performed to verify that all of the products of conception had been removed. One last pass with the curved curette was then made to verify that all of the tissue had been removed. At the end of the procedure the endometrium was noted to be normal and thin. The Allis clamp was removed from the anterior lip of the cervix. Nothing was needed to obtain hemostasis. Excellent hemostasis was noted. The speculum was then removed from the vagina. The patient tolerated this procedure well. Sponge, lap and instrument counts were correct x2 the end of the procedure. The patient was awakened from sedation and taken to the recovery area in stable condition. The patient received doxycycline 200 mg IV prior to the start of the procedure. She received 30 mg IV Toradol prior to being awakened from anesthesia. Surgeon: Luz Haywood MD
== END 2022-08-02 16:14 | disposition home or self-care (01) ==
PROVIDERS: Anesthesiology; Visit Provider Obstetrics & Gynecology
PROC: (CPT 59812; principal; 2022-08-02 14:30)
DX: O03.1 Delayed or excessive hemorrhage following incomplete spontaneous abortion (principal)
CPT/HCPCS: 59812; 00940; 01965; 76857; 76998; 87426; 88305; 99140; A4344; J1100; J1885; J2250; J2405; J2704; J3010; J3490; J7120

== ENCOUNTER 2022-09-13 00:19 | Emergency (ER) | payer OTHER, SELFPAY ==
[2022-09-13 01:01] VITALS: BP 125/76; PULSE 99; RESP 16; TEMP 36.1; O2SAT 99
[2022-09-13 02:01] LABS: PCR FLU A Negative PCR FLU A (Negative); PCR FLU B Negative PCR FLU B (Negative); PCR RSV Negative PCR RSV (Negative)
[2022-09-13 02:02] LABS: SARS PCR* Negative SARS-CoV-2 (Negative)
--- NOTE | 2022-09-13 02:25 | ED_ITS ---
HPI - Nausea/Vomiting/Diarrhea General Chief complaint: Nausea/Vomiting Stated complaint: Vomiting Time Seen by Provider: 09/13/22 01:30 Source: patient Mode of arrival: ambulatory Limitations: no limitations History of Present Illness HPI Narrative: 26-year-old female presents with a 5 hour history of epigastric discomfort, nausea and vomiting. She also had 1 episode of loose stools at the start of the episode. Symptoms came on suddenly, no body aches, fevers, abdominal trauma. Denies prior history of similar episodes. Does regularly smoke marijuana typically every other day and has done so for about 5 years. No prior known history of cyclic vomiting syndrome. She denies any alcohol intake or any other impairing substances. Has not tried any medications at home to stay help with her symptoms. No Tylenol, no ibuprofen, no antacids, antidiarrheals, etc.. No contacts with similar symptoms. No prior history of gallbladder disease. Vomit is bilious but nonbloody. No blood in her stools. Was tolerating food and liquids normally prior to 7:00 p.m. tonight. Past medical history she reports is notable for anxiety. She has a prescription for oral contraceptives and Vistaril, rarely needing the Vistaril. Reports good compliance with her oral contraceptive. Denies any recent surgery. Review of the records shows a miscarriage. Allergy is to fluoxetine and lorazepam. Amoxicillin is listed but she states that she simply gets a yeast infection and not truly hives. Socially does regularly smoke marijuana. Denies recent alcohol intake. No pertinent travel. ROS is notable for the GI symptoms as above only, otherwise negative times 12 systems. Related Data Previous Rx's Medication Instructions Recorded hydroxyzine HCl 25 mg tablet 25 mg PO TID Anxiety #15 tabs 03/30/22 desogestrel-e.estradiol 0.15 1 tab PO QDAY #84 tabs 08/02/22 mg-0.02 mg(21)/e.estrad 0.01 mg(5) tablet famotidine 20 mg tablet 20 mg PO DAILY #10 tabs 09/13/22 ondansetron 4 mg disintegrating 4 mg PO Q6H PRN nausea and 09/13/22 tablet vomiting #10 tabs Allergies Allergy/AdvReac Type Severity Reaction Status Date / Time fluoxetine Allergy Intermediate heart rate Verified 08/07/22 15:14 elevated amoxicillin Allergy Unknown Hives Verified 08/20/22 13:12 lorazepam [From Ativan] AdvReac Intermediate Verified 08/07/22 15:14 Review of Systems Status of ROS: Reports: 10 or more systems reviewed and unremarkable except as noted in History and below [facility] Medical History History of anxiety History of miscarriage Surgical History History of D&C Social History Smoking Status: Former smoker Do you use any of these nicotine containing products: None How often do you have a drink containing alcohol: monthly or less Alcohol type: other Alcohol type details: WHITE CLAWS How many standard drinks containing alcohol do you have on a typical day: 1 or 2 How often do you have six or more drinks on one occasion: Never AUDIT-C Alcohol total score: 1 Non-prescribed substance use: marijuana (any form) Non-prescribed substance use details: DAILY Caffeine: Yes Are you using contraception or practicing any form of control: No service: No Exam Const: Vital Signs, click to edit/add: Vital Signs - 24 hr 09/13/22 01:01 Temperature 97.0 F L Pulse Rate [Left P ulse Oximeter] 99 Respiratory Rate 16 Blood Pressure [Ri ght Upper Arm] 125/76 Pulse Oximetry 99 Oxygen Delivery Me thod Room Air Documenting provider has reviewed patient's vital signs: yes Common normals: no apparent distress General appearance: cooperative and comfortable HENMT: Common normals: normocephalic Head and scalp: normocephalic Mouth: oral and palatal mucosa normal Throat: posterior oropharynx normal Eye: Common normals: conjunctivae normal General eye: normal appearance of both eyes Conjunctiva: conjunctiva(e) normal Neck & C-Spine: Common normals: full ROM and no lymphadenopathy Resp: Common normals: normal respiratory effort, no use of accessory muscles and clear to auscultation bilaterally Effort & inspection: able to speak in complete sentences Auscultation: clear to auscultation bilaterally Cardio: Common normals: regular rate, regular rhythm, S1 normal heart sound, S2 normal heart sound, no murmurs and peripheral pulses 2+ throughout Rate: regular rate Rhythm: regular rhythm Heart sounds: S1 normal and S2 normal Peripheral pulses: pulses 2+ throughout GI: Common normals: Normal to inspection, nondistended, normoactive bowel sounds present, soft to palpation, non-tender and no hepatosplenomegaly Palpation: soft and no hepatosplenomegaly; no mass Extremity: Common normals: normal to inspection and normal capillary refill Neuro: Speech: speech normal Motor exam: no movement abnormalities noted Psych: Common normals: mental status grossly normal, thought process normal, cooperative and speech normal Speech: normal speech Thought process: normal thought process Thought content: normal thought content Insight: insight good Judgement: judgment good Skin: Common normals: no rashes or lesions noted General skin exam: no rashes or lesions noted Course Vital Signs Vital signs: Initial Vital Signs Temperature 97.0 F L 09/13/22 01:01 Temperature Source Temporal Artery Scan 09/13/22 01:01 Pulse Rate 99 09/13/22 01:01 Pulse Rhythm 09/13/22 01:01 Respiratory Rate 16 09/13/22 01:01 Blood Pressure 125/76 09/13/22 01:01 Blood Pressure Mean 92 09/13/22 01:01 Pulse Oximetry 99 09/13/22 01:01 Oxygen Delivery Method 09/13/22 01:01 Vital Signs Temperature 97.0 F L 09/13/22 01:01 Pulse Rate 99 09/13/22 01:01 Respiratory Rate 16 09/13/22 01:01 Blood Pressure 125/76 09/13/22 01:01 Pulse Oximetry 99 09/13/22 01:01 Oxygen Delivery Method 09/13/22 01:01 Temperature 97.0 F L 09/13/22 01:01 Pulse Rate 99 09/13/22 01:01 Respiratory Rate 16 09/13/22 01:01 Blood Pressure 125/76 09/13/22 01:01 Pulse Oximetry 99 09/13/22 01:01 Oxygen Delivery Method 09/13/22 01:01 MDM - Nausea/Vomiting/Diarrhea MDM Narrative Medical decision making narrative: Differential diagnosis including viral illness, gastroenteritis, cyclic vomiting syndrome, colitis, pancreatitis. Exam is very reassuring. Recommended trial of Zofran and famotidine. I did discuss cyclic vomiting syndrome and how I do have concerns that this could be related to her marijuana use. Since this is her 1st episode, it is difficult to characterize. I am hoping this is simply gastroenteritis and she responds well to medications but she was very agreeable to the conversation about cyclic vomiting syndrome if her symptoms persist. Await clinical response. Swabs negative. Update: Patient with improvement of symptoms on Zofran and famotidine. Discussed home management per discharge instructions. Lab Data Attestation: I reviewed the patient's lab results. Labs: Lab Results 09/13/22 Range/Units 01:08 SARS-CoV-2 (PCR) Negative SARS-CoV-2 (Negative) Influenza Type A (PCR) Negative PCR FLU A (Negative) Influenza Type B (PCR) Negative PCR FLU B (Negative) RSV (PCR) Negative PCR RSV (Negative) Discharge Plan Discharge Clinical Impression: Vomiting Patient Disposition: Home, Self-Care Condition: Improved Instructions: Acute Nausea and Vomiting (ED), Cyclic Vomiting Syndrome (ED) Additional Instructions: as we discussed, I suspect that your symptoms are simply related to gastroenteritis, a common viral illness. Your given Zofran for the nausea and famotidine, stomach acid medicine. Your symptoms should improve in a couple of days. Continue sipping fluids to stay hydrated, advance her diet as you are feeling better. As we also discussed, this could be related to cyclic vomiting syndrome, a common condition especially in young women who regularly use marijuana. I cannot tell for sure if this is the source of your vomiting, especially since this is only your 1st episode. We do not tend to correlate vomiting with marijuana unless you have had several episodes. Nonetheless, your motivated to quit using the marijuana and I think that this is in your best interest overall. I have given you a limited supply of Zofran and famotidine to use, if you find that you are having recurrent episodes, stopping the marijuana is best. Follow-up with your primary care provider if her symptoms are not impr oving within a few days. Activity Level: No Restrictions Discharge Diet: Regular Prescriptions: New famotidine 20 mg tablet 20 mg PO DAILY Qty: 10 0RF Rx Instructions: this once daily for the next 3 days, then as needed ondansetron 4 mg tablet,disintegrating 4 mg PO Q6H PRN (Reason: nausea and vomiting) Qty: 10 0RF No Action desog-e.estradiol/e.estradiol 0.15-0.02 mgx21 /0.01 mg x 5 tablet 1 tab PO QDAY Qty: 84 3RF hydroxyzine HCl 25 mg tablet 25 mg PO TID Qty: 15 0RF Follow Up/Referrals: Provider,Not a Local [Primary Care Provider] - Stand Alone Forms: [employer] Info Instructions
[2022-09-13] MEDS: ONDANSETRON ODT 4 MG TAB PO (02:30)
[2022-09-13] MEDS: FAMOTIDINE 20 MG TABLET PO (02:30)
[2022-09-13 03:40] VITALS: BP 116/74; PULSE 86; RESP 16; O2SAT 98
== END 2022-09-13 03:49 | disposition home or self-care (01) ==
PROVIDERS: Emergency Provider Family Medicine
DX: R11.10 Vomiting, unspecified (principal)
CPT/HCPCS: 87502; 87634; 87635; 99283; A9270

== ENCOUNTER 2023-11-14 16:16 | Emergency (ER) | payer OTHER, SELFPAY ==
[2023-11-14 16:31] VITALS: BP 116/79; PULSE 92; RESP 18; TEMP 36.7; O2SAT 96; BMI 22.0
[2023-11-14 16:35] LABS: Appearance Urine Clear (Clear); Bilirubin Urine Negative (Negative); Blood Urine Negative (Negative); Color Urine Yellow (Yellow); Glucose Urine Negative (Negative); Ketones Urine Trace (Negative); Leukocyte Esterase Urine Negative (Negative); Nitrite Urine Negative (Negative); Protein Urine Negative (Negative); Specific Gravity Urine 1.025 (1.000-1.030); Urobilinogen Urine 0.2 (0.2-1.0)
[2023-11-14 16:39] LABS: RBC Urine 0-2 (0-2); Squamous Epithelial Cell Urine Few (None-Few); WBC Urine 0-2 (0-5)
[2023-11-14 16:43] LABS: Ur HCG Qualitative* Negative (Negative)
--- NOTE | 2023-11-14 16:47 | ED_ITS ---
HPI - General Adult General Date Seen: 11/14/23 Chief complaint: Weakness Stated complaint: shortness of breath, throat pain, flu+ Time Seen by Provider: 11/14/23 16:36 History of Present Illness HPI narrative: 28-year-old female with a history of anxiety, presents to the ER today for evaluation of body aches and right flank pain. She is positive for influenza B as well as multiple of her other family members. She has been trying to care for them while she, herself, is sick. She has been sick since Saturday. She has developed symptoms of mild cough and nasal congestion that in symptoms have gotten worse since then. She has had progressing cough, body aches, headache, fevers. She has had chills and fatigue. She has been nauseous but no vomiting. No diarrhea. Urination is normal. She was seen in the [facility] yesterday with her son and they both tested positive for influenza A. Since she was beyond 48 hours she was not in the window for treatment with Tamiflu. Supportive care was recommended. Since yesterday she has had progressive symptoms with ongoing achiness in particular a lot of achiness in her low back and right flank. She is also feeling some burning in her throat and upper chest with each respiration. Cough is nonproductive. No hemoptysis. No swelling in her legs. Most recent ER visit here to [place] was 09/13/2022, when she was seen for epigastric pain and vomiting. She does not have any long-term GI problems. She had a history of asthma when she was a child but really does not have anymore and has not needed to use an inhaler for years. Related Data Previous Rx's Medication Instructions Recorded hydroxyzine HCl 25 mg tablet 25 mg PO TID Anxiety #15 tabs 03/30/22 desogestrel-e.estradiol 0.15 1 tab PO QDAY #84 tabs 08/02/22 mg-0.02 mg(21)/e.estrad 0.01 mg(5) tablet famotidine 20 mg tablet 20 mg PO DAILY #10 tabs 09/13/22 ondansetron 4 mg disintegrating 4 mg PO Q6H PRN nausea and 09/13/22 tablet vomiting #10 tabs benzonatate 100 mg capsule 100 mg PO TID PRN cough #14 caps 11/14/23 Allergies Allergy/AdvReac Type Severity Reaction Status Date / Time fluoxetine Allergy Intermediate heart rate Verified 11/14/23 16:33 elevated amoxicillin Allergy Unknown Hives Verified 11/14/23 16:33 lorazepam [From Ativan] AdvReac Intermediate Verified 11/14/23 16:33 [facility] Medical History History of anxiety History of miscarriage Surgical History History of D&C Social History Smoking Status: Former smoker Do you use any of these nicotine containing products: None How often do you have a drink containing alcohol: monthly or less Alcohol type: other Alcohol type details: WHITE CLAWS How many standard drinks containing alcohol do you have on a typical day: 1 or 2 How often do you have six or more drinks on one occasion: Never AUDIT-C Alcohol total score: 1 Non-prescribed substance use: marijuana (any form) Non-prescribed substance use details: DAILY Caffeine: Yes Are you using contraception or practicing any form of control: No service: No Exam Narrative: Exam Narrative: Constitutional: Appears well-developed and well-nourished. Alert. Conversant. Non toxic. HENT: Head: Atraumatic. Nose: Nose normal. She TMs, canals, mastoids are normal bilaterally. Mouth/Throat: Oral mucosa is clear and moist. no trismus. Pharynx mildly erythematous. Tonsils symmetric. No tonsillar enlargement or exudate. No signs of airway swelling. Phonation normal. No trismus. Airway widely patent Eyes: Conjunctivae normal. EOM normal. Pupils equal, round, and reactive to light. No scleral icterus. Neck: Normal range of motion. Neck supple. No tracheal deviation present. Cardiovascular: Normal rate, regular rhythm. No gallop. No friction rub. No murmur heard. Symmetric radial artery pulses Pulmonary/Chest: Effort normal. No stridor. No respiratory distress. No wheezes. No rales. No rhonchi . No tenderness. Abdominal: Soft. Bowel sounds normal. No distension. No mass. Mild right flank and right upper quad tenderness. No epigastric tenderness, right lower quadrant. No Joshi sign. No hepatomegaly. No rebound. No guarding. Musculoskeletal: RUE: Normal range of motion. No tenderness. No deformity LUE: Normal range of motion. No tenderness. No deformity RLE: Normal range of motion. No edema. No tenderness. No deformity LLE: Normal range of motion. No edema. No tenderness. No deformity Neurological: Alert and oriented to person, place, and time. Normal strength. CN II-VII intact. No sensory deficit. GCS eye subscore is 4. GCS verbal subscore is 5. GCS motor subscore is 6. Normal coordination Skin: Skin is warm and dry. No rash noted. No pallor. Normal capillary refill. Psychiatric: Normal mood. Normal affect. Const: Vital Signs, click to edit/add: Vital Signs - 24 hr 11/14/23 16:31 Temperature 98.0 F Pulse Rate [Right Pulse Oximeter] 92 Respiratory Rate 18 Blood Pressure [Ri ght Upper Arm] 116/79 Pulse Oximetry 96 Oxygen Delivery Me thod Room Air Course Vital Signs Vital signs: Initial Vital Signs Temperature 98.0 F 11/14/23 16:31 Temperature Source Temporal Artery Scan 11/14/23 16:31 Pulse Rate 92 11/14/23 16:31 Pulse Rhythm Regular 11/14/23 16:31 Pulse Strength 3+ Normal 11/14/23 16:31 Respiratory Rate 18 11/14/23 16:31 Blood Pressure 116/79 11/14/23 16:31 Blood Pressure Mean 91 11/14/23 16:31 Blood Pressure Position Sitting 11/14/23 16:31 Pulse Oximetry 96 11/14/23 16:31 Oxygen Delivery Method Room Air 11/14/23 16:31 Vital Signs Temperature 98.0 F 11/14/23 16:31 Pulse Rate 92 11/14/23 16:31 Respiratory Rate 18 11/14/23 16:31 Blood Pressure 116/79 11/14/23 16:31 Pulse Oximetry 96 11/14/23 16:31 Oxygen Delivery Method Room Air 11/14/23 16:31 Temperature 98.0 F 11/14/23 16:31 Pulse Rate 92 11/14/23 16:31 Respiratory Rate 18 11/14/23 16:31 Blood Pressure 116/79 11/14/23 16:31 Pulse Oximetry 96 11/14/23 16:31 Oxygen Delivery Method Room Air 11/14/23 16:31 Medical Decision Making MDM Narrative Medical decision making narrative: This patient presents for evaluation of fever, body aches, headache,, body aches, sore throat, cough, burning in her upper chest and throat, as well as right flank and low back pain. This is consistent with an upper respiratory tract infection. She is on day 4 of symptoms. Viral testing positive for influenza a yesterday in the [facility]. Negative for COVID. Although she is having burning in her low upper chest she is not having any wheezing or bronchospasm on her exam and lung sounds are clear. Urinalysis shows no sign of bacteriuria, pyuria or other evidence for UTI or pyelonephritis. She does have ketones in her urine consistent with dehydration. No evidence for hematuria to suggest kidney stone. Overall her low back pain is fairly mild and does not seem severe colicky to really be raise high suspicion for kidney stone. At this point we feel that the risk of radiation with a stone protocol CT would outweigh the benefit. There is no signs at this point of serious bacterial infection such as OM, RPA, epiglottitis, ENTERTAINMENT PRODUCTION PROFESSIONAL, strep pharyngitis, pneumonia, sinusitis, meningitis, bacteremia, serious bacterial infection. Given clear lungs, fever curve, no hypoxia and no respiratory distress I do not feel a CXR is indicated at this point as the probability of bacterial pneumonia is very unlikely. There are mild nausea but no significant gastrointestinal symptoms at this point and no signs of dehydration. Close followup with primary care physician is indicated. Return to ED for fever > 103, protracted vomiting, confusion, or other worsening. Lab Data Labs: Lab Results 11/14/23 11/14/23 Range/Units 16:29 16:34 Urine Color Yellow (Yellow) Urine Appearance Clear (Clear) Urine pH 7.0 (5.0-8.5) Ur Specific [place] 1.025 (1.000-1.030) Urine Protein Negative (Negative) Urine Glucose (UA) Negative (Negative) Urine Ketones Trace A (Negative) Urine Blood Negative (Negative) Urine Nitrite Negative (Negative) Urine Bilirubin Negative (Negative) Urine Urobilinogen 0.2 (0.2-1.0) Ur Leukocyte Esterase Negative (Negative) Urine RBC 0-2 (0-2) Urine WBC 0-2 (0-5) Ur Squamous Epith Cells Few (None-Few) Urine Bacteria None (None) Urine HCG, Qual Negative (Negative) Discharge Plan Discharge Clinical Impression: Acute flank pain, Influenza A Patient Disposition: Home, Self-Care Condition: Stable Instructions: Influenza (DC) Additional Instructions: As we discussed, please come back to the ER if you have any concerns-especially if you have worsening cough, worsening trouble breathing, severe chest pain, high fever, bloody sputum, uncontrolled vomiting or dehydration, weakness. Return to the ER or see her doctor if you are not improving within the next 4-5 days. Use ibuprofen 600 mg every 6 hours as needed or acetaminophen 1000 mg every 6 hours as needed to help manage your body aches, headache, fever, and pain. Drink plenty of fluids. Try to stay hydrated so that urine is fairly clear or light yellow. Had foods when you feel up to it. use cough medication such as Mucinex or Tessalon to help with your cough. Prescriptions: New benzonatate 100 mg capsule 100 mg PO TID PRN (Reason: cough) Qty: 14 0RF No Action desog-e.estradiol/e.estradiol 0.15-0.02 mgx21 /0.01 mg x 5 tablet 1 tab PO QDAY Qty: 84 3RF hydroxyzine HCl 25 mg tablet 25 mg PO TID Qty: 15 0RF famotidine 20 mg tablet 20 mg PO DAILY Qty: 10 0RF Rx Instructions: this once daily for the next 3 days, then as needed ondansetron 4 mg tablet,disintegrating 4 mg PO Q6H PRN (Reason: nausea and vomiting) Qty: 10 0RF Follow Up/Referrals: Provider,Not a Local [Primary Care Provider] - Stand Alone Forms: [place] Info Instructions
== END 2023-11-14 17:42 | disposition home or self-care (01) ==
LOC: ED 17:32
PROVIDERS: Emergency Provider Emergency Medicine
DX: R10.9 Unspecified abdominal pain (principal); J09.X2 Influenza due to identified novel influenza A virus with other respiratory manifestations
CPT/HCPCS: 81001; 81025; 99282; 99283

== ENCOUNTER 2024-03-20 22:12 | Emergency (ER) | payer OTHER, SELFPAY ==
[2024-03-20 22:25] VITALS: BP 127/83; PULSE 84; RESP 18; TEMP 36.7; O2SAT 99; BMI 22.1
--- NOTE | 2024-03-20 23:06 | ED_ITS ---
HPI - General Adult General Chief complaint: Chest Pain Stated complaint: Chest/L shoulder, back pain, lightheaded Time Seen by Provider: 03/20/24 22:30 History of Present Illness HPI narrative: CC: Left Chest /Shoulder Pain pt. was lying in bed when she started getting pain on left side of chest and left shoulder blade. nauseated. denies vomiting , diarrhea, fevers, injury. 28-year-old woman presenting to the emergency department with complaint of chest pain, left-sided. Seems to radiate into her back on the left shoulder area as well. Was well at onset just lying in bed. History of palpitations probably PACs. Pain seemed to be in the left chest shooting up into the shoulder area and deep discomfort underneath the left scapula. Feels a little bit better seated forward Related Data Home Medications ?Medication ?Instructions ?Recorded ?Confirmed spironolactone 100 mg tablet 100 mg PO DAILY 03/20/24 03/20/24 Allergies Allergy/AdvReac Type Severity Reaction Status Date / Time fluoxetine Allergy Intermediate heart rate Verified 03/20/24 22:28 elevated amoxicillin Allergy Unknown Hives Verified 03/20/24 22:28 lorazepam [From Ativan] AdvReac Intermediate Verified 03/20/24 22:28 Review of Systems Status of ROS: Reports: 6 or more systems reviewed and unremarkable except as noted in History and below [facility] Medical History History of anxiety ?Z86.59 - Personal history of other mental and behavioral disorders (ICD-10) History of miscarriage ?Z87.59 - Personal history of other complications of , childbirth and the puerperium (ICD-10) Surgical History History of D&C ?Z98.890 - Other specified postprocedural states (ICD-10) Social History Smoking Status: Former smoker Do you use any of these nicotine containing products: None How often do you have a drink containing alcohol: monthly or less Alcohol type: other Alcohol type details: WHITE CLAWS How many standard drinks containing alcohol do you have on a typical day: 1 or 2 How often do you have six or more drinks on one occasion: Never AUDIT-C Alcohol total score: 1 Non-prescribed substance use: marijuana (any form) Non-prescribed substance use details: DAILY Caffeine: Yes Are you using contraception or practicing any form of control: No service: No Exam Narrative: Exam Narrative: Very pleasant. Mildly anxious. Skin is warm dry. I do not see any swelling, erythema, indication of injury. Lungs are clear. Heart is in regular rate and rhythm without murmur rub or gallop. Auscultation does not change semi recumbent or sitting forward. Well-perfused peripherally moving extremities without difficulty. Difficult to reproduce discomfort in the left scapular area. Const: Vital Signs, click to edit/add: Vital Signs - 24 hr 03/20/24 22:25 03/21/24 00:54 03/21/24 00:55 Temperature 98.0 F 98.0 F 98.0 F Pulse Rate [Right Pulse Oximeter] 84 79 79 Respiratory Rate 18 18 18 Blood Pressure [Ri ght Upper Arm] 127/83 121/74 121/74 Pulse Oximetry 99 99 Oxygen Delivery Me thod Room Air Room Air Documenting provider has reviewed patient's vital signs: yes Course Vital Signs Vital signs: Initial Vital Signs Respiratory Effort Normal, Spontaneous, Non-Labored 03/20/24 22:24 Respiratory Depth Normal 03/20/24 22:24 Respiratory Pattern Normal 03/20/24 22:24 Vital Signs Temperature 98.0 F 03/20/24 22:25 Pulse Rate 84 03/20/24 22:25 Respiratory Rate 18 03/20/24 22:25 Blood Pressure 127/83 03/20/24 22:25 Pulse Oximetry 99 03/20/24 22:25 Oxygen Delivery Method Room Air 03/20/24 22:25 Temperature 98.0 F 03/21/24 00:55 Pulse Rate 79 03/21/24 00:55 Respiratory Rate 18 03/21/24 00:55 Blood Pressure 121/74 03/21/24 00:55 Pulse Oximetry 99 03/21/24 00:54 Oxygen Delivery Method Room Air 03/21/24 00:54 Medical Decision Making MDM Narrative Medical decision making narrative: Discomfort is somewhat reproducible. I do suspect likely attack of anxiety. Certainly could have been a tachyarrhythmia. Will check labs for any indication of abnormality or cardiac injury. Monitor on groundwater monitoring technician for arrhythmia and otherwise for improvement in symptoms. Does not seem to have prodrome that would precipitate pericarditis or pleuritis. But rapid onset I suppose it is possible. Evaluate also for pneumothorax or pneumomediastinum. Pulmonary embolus possibility but 0 on PERC rule Does endorse some financial stress and emotional response from some trades today. Is active in stock trading with her . Discussed medication here in the emergency department but she does not feel a needs any at this time. Chest x-ray reviewed by me looks to be without infiltrate, pneumothorax or pneumomediastinum and looks to have a normal mediastinal/cardiac silhouette. Improved over time in the emergency department without further event. Labs were reassuring. See patient discharge plan for further discussion Medical Records Medical records reviewed: Yes I reviewed the patient's medical records Lab Data Lab results reviewed: Yes I reviewed the patient's lab results Labs: Lab Results 03/20/24 03/20/24 Range/Units 23:22 23:42 WBC 8.68 (4.50-11.00) K/uL RBC 4.73 (4.00-5.20) m/uL Hgb 13.6 (12.0-16.0) gm/dL Hct 39.5 (33.0-51.0) % MCV 84 (80-100) fL MCH 29 (26-34) pg MCHC 34 (32-36) gm/dL RDW Coeff of Christian 11.8 (11.5-15.5) % Plt Count 292 (140-440) K/uL Neut % (Auto) 62.1 (42.0-72.0) % Lymph % (Auto) 26.4 (20-44) % Creek % (Auto) 6.2 (0.0-11.0) % Eos % (Auto) 4.6 (0.0-7.0) % Baso % (Auto) 0.5 (0.0-3.0) % Neut # (Auto) 5.39 (1.7-7.0) K/uL Lymph # (Auto) 2.29 (0.90-2.90) K/uL [place] # (Auto) 0.50 (0.00-0.90) K/UL Eos # (Auto) 0.40 (0.00-0.50) K/uL Baso # (Auto) 0.04 (0.00-0.30) K/uL Abs Immat Gran (auto) 0.02 (0.00-0.30) K/uL Imm/Tot Granulo (auto) 0.2 % D-Dimer Quant (PE/DVT) 0.21 (0.00-0.50) ug/ml Sodium 138 (135-149) mmol/L Potassium 4.0 (3.6-5.1) mmol/L Chloride 106 (96-114) mmol/L Carbon Dioxide 24 (20-32) mmol/L Anion Gap 8 (7-15) mEq/L BUN 15 (5-24) mg/dL Creatinine 0.7 (0.5-1.5) mg/dL Estimated Creat Clear 97.21 Estimated GFR 119 ml/min Glucose 102 (60-115) mg/dL Calcium 9.5 (8.4-10.6) mg/dL Magnesium 2.1 (1.5-2.6) mg/dL Troponin I < 0.01 L (0.01-0.04) ng/mL C-Reactive Protein < 0.5 L (0.5-1.0) mg/dL NT-Pro-B Natriuret Pep 21 pg/mL POC Troponin I 0.00 L (0.01-0.04) ng/ml ECG Data Attestation: I personally reviewed and interpreted this ECG as follows: (Normal sinus rate of 75) Discharge Plan Discharge Clinical Impression: Atypical chest pain Patient Disposition: Home w/ Parent or Adult Condition: Improved Additional Instructions: I hope you can get a good night's sleep tonight. Your lab work, x-ray, EKG and monitoring are reassuring. Of course return for new and persistent, worsening pain, increasing shortness of breath, persistent worsening lightheadedness/dizziness. Prescriptions: No Action spironolactone 100 mg tablet 100 mg PO DAILY Follow Up/Referrals: Provider,Not a Local [Primary Care Provider] - Stand Alone Forms: [facility] Info Instructions
--- NOTE | 2024-03-20 23:21 | CRLHL7_ITS ---
For Patients: As a result of the Century Cures Act, medical imaging exams and procedure reports are released immediately into your electronic medical record. You may view this report before your referring provider. If you have questions, please contact your health care provider. INDICATION: Left upper chest pain. TECHNIQUE: Chest radiograph, 1 view. COMPARISON: None. FINDINGS: Cardiovascular/Mediastinum: Normal heart size. Unremarkable. Lungs: No focal consolidation. Hazy ill-defined opacification of the left lower lung zone likely due to overlying soft tissue. Airways: Trachea remains midline. Pleura: No pleural effusions or pneumothorax. Bones: No acute osseous abnormalities. Upper abdomen: Unremarkable. IMPRESSION: No acute cardiopulmonary process. Dictated by Krunal Oliveira MD @ 03/21/2024 1:34:43 AM (Electronically Signed)
[2024-03-20 23:51] LABS: Basophils Absolute Auto 0.04 K/uL (0.00-0.30); Basophils Percent Auto 0.5 % (0.0-3.0); Eosinophils Percent Auto 4.6 % (0.0-7.0); Hematocrit 39.5 % (33.0-51.0); Hemoglobin* 13.6 gm/dL (12.0-16.0); Immature Granulocytes Abs Auto 0.02 K/uL (0.00-0.30); Immature Granulocytes Pct Auto 0.2 %; Lymphocytes Absolute Auto 2.29 K/uL (0.90-2.90); Lymphocytes Percent Auto 26.4 % (20-44); Mean Corpuscular HGB Conc 34 gm/dL (32-36); Mean Corpuscular Hemoglobin 29 pg (26-34); Mean Corpuscular Volume 84 fL (80-100); Monocytes Percent Auto 6.2 % (0.0-11.0); Neutrophils Absolute Auto 5.39 K/uL (1.7-7.0); Neutrophils Percent Auto 62.1 % (42.0-72.0); Platelet Count* 292 K/uL (140-440); RDW Coefficient of Variation % 11.8 % (11.5-15.5); Red Blood Count 4.73 m/uL (4.00-5.20); White Blood Count* 8.68 K/uL (4.50-11.00)
[2024-03-20 23:54] LABS: Slide Review Reflex No
[2024-03-21 00:08] LABS: Chloride* 106 mmol/L (96-114); Sodium* 138 mmol/L (135-149)
[2024-03-21 00:11] LABS: Creatinine* 0.7 mg/dL (0.5-1.5); Est. Creatinine Clearance* 97.21; Estimated Glomerular Filt Rate 119 ml/min
[2024-03-21 00:12] LABS: Anion Gap 8 mEq/L (7-15); Blood Urea Nitrogen* 15 mg/dL (5-24); Calcium* 9.5 mg/dL (8.4-10.6); Carbon Dioxide* 24 mmol/L (20-32); Glucose* 102 mg/dL (60-115); Magnesium* 2.1 mg/dL (1.5-2.6)
[2024-03-21 00:15] LABS: C Reactive Protein* < 0.5 mg/dL (0.5-1.0)
[2024-03-21 00:18] LABS: D Dimer Quantitative* 0.21 ug/ml (0.00-0.50)
[2024-03-21 00:22] LABS: NT Pro B Type NatriureticPept* 21 pg/mL
[2024-03-21 00:26] LABS: Troponin I* < 0.01 ng/mL (0.01-0.04)
[2024-03-21 00:54] VITALS: BP 121/74; PULSE 79; RESP 18; TEMP 36.7; O2SAT 99
[2024-03-21 00:55] VITALS: BP 121/74; PULSE 79; RESP 18; TEMP 36.7
== END 2024-03-21 00:55 | disposition home or self-care (01) ==
PROVIDERS: Emergency Provider Family Medicine
DX: R07.89 Other chest pain (principal)
CPT/HCPCS: 36415; 71045; 80048; 83735; 83880; 84484; 85025; 85379; 86140; 93005; 99284; 99285

== ENCOUNTER 2024-06-26 09:36 | Outpatient (CLI) | payer OTHER, SELFPAY | END 2024-06-26 09:37 | disposition home or self-care (01) | LOC: NFLDREF 14:51 | PROVIDERS: Visit Provider Physician Assistant | DX: R30.0 Dysuria (principal); N39.0 Urinary tract infection, site not specified; B37.9 Candidiasis, unspecified | CPT/HCPCS: 87086; 87186 ==